=== PATIENT | male | born 1995 | race Caucasian/White ===

== ENCOUNTER 2019-01-10 10:06 | Emergency (ER) | payer SELFPAY ==
[~2019-01-10] VITALS: Ht 188 cm; Wt 102.3 kg
[2019-01-10 10:11] VITALS: BP 118/79; TEMP 98.3
[2019-01-10 10:32] LABS: STREP SCREEN NEGATIVE
[2019-01-10 11:21] LABS: MONOSCREEN POSITIVE
[2019-01-10] MEDS ORDERED: MAGIC MOUTH PO (11:31)
[2019-01-10 12:08] VITALS: PULSE 83
== END 2019-01-10 12:08 | disposition home or self-care (01) ==
LOC: COL.ER 10:06
PROVIDERS: Emergency Medicine; Physician Assistant
DX: B27.90 Infectious mononucleosis, unspecified without complication (principal); J03.90 Acute tonsillitis, unspecified
CPT/HCPCS: J1100